=== PATIENT | male | born 1935 | race Caucasian/White ===

== ENCOUNTER 2020-02-12 14:37 | Emergency (ER) | payer OTHER, SELFPAY ==
[2020-02-12 14:42] VITALS: BP 135/95; PULSE 72; RESP 18; TEMP 36.8; O2SAT 94
--- NOTE | 2020-02-12 15:00 | DI.RAD_ITS ---
EXAM: XR FINGER RT INDEX CLINICAL HISTORY: Possible splinter FB,distal phalanx, near nail bed. TECHNIQUE: 2D digital imaging was performed. COMPARISON: No exams were available for comparison FINDINGS: BONES: No acute fracture is present. No bony destructive lesion is seen. JOINTS: No dislocation present. SOFT TISSUE: There is soft tissue swelling particularly near the nailbed. No radiopaque foreign body or abnormal gas collection is seen. There are [id number] degenerative changes at the interpha langeal joints. IMPRESSION: No evidence of acute fracture, or radiopaque foreign body. DATA REPOSITORY: RADIATION DOSE DELIVERED:
--- NOTE | 2020-02-12 15:30 | ED.GENADUL_ITS ---
Discharge Plan Disposition Patient Disposition: HOME Condition: Stable Discharge Details Chief Complaint: RashLesion Clinical Impression: Paronychia Primary Care Provider: Mer Rico ED Provider: Tay Eastman Home Meds and New Rx's Prescriptions: New cephalexin [Keflex] 500 mg capsule 500 mg PO QID 10 Days Qty: 40 RF: 0 Continued fluoxetine [Prozac] 40 MG capsule 40 mg PO DAILY RF: 0 gabapentin 600 MG tablet 600 mg PO HS RF: 0 amlodipine 5 MG tablet 5 mg PO DAILY RF: 0 losartan 25 MG tablet 25 mg PO DAILY RF: 0 metronidazole 500 MG tablet 500 mg PO TID Qty: 20 RF: 0 levofloxacin 750 MG tablet 750 mg PO DAILY Qty: 6 RF: 0 Discharge Instructions Instructions: Paronychia (ED) Additional Instructions: Keflex as directed. No obvious foreign body seen on x-ray or my physical examination. Change antibiotic dressing daily. Elevate, warm compresses every 2 hours for 20 minutes. Please watch for new or worsening symptoms and return to the ER for any concerns. I would like you to reach out to your primary care provider tomorrow for reevaluation in the next 3 to 5 days. [id number] medication such as Tylenol as directed for discomfort. Discharge Data Discharge Date/Time-TO BE ENTERED AT DEPARTURE: 02/12/20 16:02 Medical Decision Making 85-year-old gentleman presents with right index finger discomfort over the past 24-48 hours, questions if potentially there is a splinter. He appears well, nontoxic. Neuro, vascular, tendon intact. Examination is most consistent with paronychia, no obvious foreign body. Tetanus is up-to-date. Will obtain x-ray to help evaluate for foreign body, we discussed the chance of retained foreign body even with x-ray. Will perform digital block and drained paronychia X-ray read by me and later confirmed to virtual radiology as negative. Discussed x-ray with patient. Paronychia drained without complication. Antibiotic ointment applied. Will place on Keflex. Patient has additional questions or concerns and is comfortable discharge. HPI General Mode of arrival: ambulatory . Date/Time Provider Initiated Documentation: 02/12/20 15:02 . Limitations to Documentation: no limitations . Information obtained by: patient . HPI Narrative: This is a 85-year-old gentleman who is right-hand dominant, history of hypertension, presenting for an infected right index finger. He reports a couple days ago he was working with wood, did not notice any injury. Subsequently the area has been warm, red, painful. He thought possibly there could be a splinter retained in his finger however again he did not feel a splinter when he was working with a wood. He denies fever, numbness, tingling, weakness. Pain is mild to moderate. He reports that his tetanus is up-to-date Related Data Home Medications Medication Instructions Recorded Confirmed amlodipine 5 mg PO DAILY 02/25/18 02/12/20 fluoxetine [Prozac] 40 mg PO DAILY 02/25/18 02/12/20 gabapentin 600 mg PO HS 02/25/18 02/12/20 levofloxacin 750 mg PO DAILY #6 tablet 02/25/18 02/12/20 losartan 25 mg PO DAILY 02/25/18 02/12/20 metronidazole 500 mg PO TID #20 tab 02/25/18 02/12/20 cephalexin [Keflex] 500 mg PO QID 10 Days #40 cap 02/12/20 Previous Rx's Medication Instructions Recorded levofloxacin 750 mg PO DAILY #6 tablet 02/25/18 metronidazole 500 mg PO TID #20 tab 02/25/18 cephalexin [Keflex] 500 mg PO QID 10 Days #40 cap 02/12/20 Allergies Allergy/AdvReac Type Severity Reaction Status Date / Time hydromorphone [From Dilaudid] AdvReac Severe Psychosis Unverified 02/12/20 14:46 meperidine [From Demerol] AdvReac Severe Psychosis Unverified 02/12/20 14:46 General Stated Complaint: RashLesion DOMINIQUE: 4 Review of Systems Constitutional Constitutional: Denies fever(s) and Denies weakness Musculoskeletal Musculoskeletal: Denies arthralgias, Denies numbness and Denies tingling Integumentary/Breasts Skin/Breast: Denies rash Neurologic Neurologic: Denies numbness, Denies tingling and Denies weakness COUNT INCLUDES THE [facility] Social History Do you feel safe at home: Yes Do you feel safe in your relationship?: Yes Exam Const General: cooperative, healthy appearing, comfortable and no acute distress Orientation: alert and awake [facility] Head: normal to inspection, normocephalic and atraumatic Mouth: moist mucous membranes Eyes Conjunctivae: conjunctivae normal Neck Neck: normal visual inspection, trachea midline and supple Resp Effort & Inspection: normal respiratory effort and able to speak in complete sentences Cardio Rate: regular rate Rhythm: regular rhythm Skin General skin exam: no rashes or lesions noted Neuro General: patient alert, patient awake, moves all extremities and no focal motor deficits Sensory Exam: no sensory deficits noted Extrem Right upper extremity: hand Hand/finger images: 1. Erythema, warmth, swelling, tenderness. Mild fluctuance. No obvious foreign body or puncture wound. Examination consistent with paronychia Psych Appearance: grossly normal Mental Status: mental status grossly normal Course Vital Signs Vital signs: Vital Signs Temperature 36.8 C 02/12/20 14:42 Pulse 72 02/12/20 14:42 Respiratory Rate 18 02/12/20 14:42 Blood Pressure 135/95 H 02/12/20 14:42 Pulse Oximetry 94 L 02/12/20 14:42 Temperature 36.8 C 02/12/20 14:42 Temperature Source Temporal Artery Scan 02/12/20 14:42 Pulse 72 02/12/20 14:42 Respiratory Rate 18 02/12/20 14:42 Respiratory Effort Non-Labored 02/12/20 14:48 Blood Pressure 135/95 H 02/12/20 14:42 Blood Pressure Position Sitting 02/12/20 14:42 Pulse Oximetry 94 L 02/12/20 14:42 Pain Level 3 02/12/20 14:42 Procedures Abscess I/D Site: Hand Side (if applicable): Right (Index finger) Local Anesthetic: Lidocaine 1% and Bupivicaine 0.5% Amount of anesthesia used (mL): 5 Technique: Incised with #11 Blade Amount of fluid expressed (mL): 2 Irrigation: Yes Packing used?: None Complications: Other (None)
[2020-02-12 15:55] VITALS: BP 132/77; PULSE 57; RESP 18; O2SAT 96
== END 2020-02-12 16:02 | disposition home or self-care (01) ==
PROVIDERS: Emergency Provider Physician Assistant; PCP Nurse Practitioner
DX: L03.011 Cellulitis of right finger (principal); I10 Essential (primary) hypertension
CPT/HCPCS: 10060; 99283; 73140; 99282

== ENCOUNTER 2022-06-06 15:36 | Emergency (ER) | payer OTHER, SELFPAY ==
[2022-06-06 15:45] VITALS: BP 143/66; PULSE 55; RESP 18; TEMP 36.6; O2SAT 98
--- NOTE | 2022-06-06 16:18 | NUR.NOTE ---
Nohemy requesting surgical consult for abd hernia DIOR, ER visit 06/06/22, [facility]
--- NOTE | 2022-06-06 16:20 | ED.GENADUL_ITS ---
Discharge Plan Disposition Patient Disposition: HOME Condition: Stable Discharge Details Clinical Impression: Hernia, abdominal Primary Care Provider: Gay Vanegas ED Provider: Tay Eastman Home Meds and New Rx's Prescriptions: Continued metoprolol tartrate 25 mg tablet 25 mg PO DAILY ropinirole 0.25 mg tablet 0.25 mg PO TID multivitamin Tablet 1 tab PO DAILY isosorbide dinitrate 30 mg tablet 30 mg PO BID Rx Instructions: allow nitrate-free interval of 12-14 hrs per 24-hr period calcium carbonate [Calcium 600] 600 mg calcium (1,500 mg) tablet 600 mg PO BID cetirizine 10 mg tablet 10 mg PO DAILY PRN aspirin 81 mg tablet,delayed release (DR/EC) 81 mg PO DAILY fluoxetine [Prozac] 40 MG capsule 40 mg PO DAILY amlodipine 5 MG tablet 5 mg PO DAILY losartan 25 MG tablet 25 mg PO DAILY Discharge Instructions Instructions: Ventral Hernia (ED) Additional Instructions: The examination is consistent with a hernia. Currently it is soft, nontender, and easily reduced. As we discussed this is not surgical emergent at the moment but if it becomes painful, you start to have nausea, vomiting, the inability to reduce the hernia, then I need you to return immediately to the ER. Otherwise I have placed you on the surgical list, Dr. Hair. If you do not hear from his office on Wednesday I would like you to personally reach out to discuss your hernia and need for elective surgery. I do understand that you are returning to [place] on July 05 and are open to the idea of having her surgery here before you leave. Referrals: Dylan Hair MD [ [facility]YS[facility]] - Medical Decision Making This is an 87-year-old male past medical history of bowel resection x2, right inguinal hernia repair, presenting for a painless hernia that he noticed about 1 week ago. I am unable to appreciate a hernia with the patient lying supine but when he stands I am able to appreciate a nontender easily reducible hernia along the inferior right aspect of his vertical abdominal scar. At this time I do not believe that laboratory values or imaging is necessary. We discussed signs and symptoms of an incarcerated or strangulated hernia and the importance of returning immediately. Otherwise I will place him on the surgical list to help expedite outpatient care. They will discuss the realistic timeframe for potential surgery and whether he would like to have this done prior to going to [place] for the rest of the year, July 05. Standard discharge and return precautions were provided. Patient understands, is agreeable to this plan, and has no additional questions or concerns upon discharge. This documentation was generated using [employer] system, please disregard any oddities of phrase or misspellings. Medical Records Medical records reviewed: Yes I reviewed the patient's medical records. HPI General Mode of arrival: ambulatory . Date/Time Provider Initiated Documentation: 06/06/22 15:53 . Limitations to Documentation: no limitations . Information obtained by: patient and family . HPI Narrative: This is an 87-year-old gentleman with a past medical history of hypertension, inguinal hernia repair, partial bowel resection x2, most recently in October 2021 in [place], now presenting with a painless hernia associated with his most recent surgical incision. Patient reports he noticed it approximately 1 week ago. It is painless and if he lays flat it resolves completely. He denies recent illness, trauma, fever, chest pain, shortness of breath, nausea, vomiting, abdominal pain, back pain, dysuria, hematuria, diarrhea or constipation. Patient is scheduled to go back to [place] for the winter on July 05 and unsure if he should follow-up with surgery here or there. Related Data Home Medications Medication Instructions Recorded Confirmed amlodipine 5 mg tablet 5 mg PO DAILY 02/25/18 06/16/21 fluoxetine 40 mg capsule (Prozac) 40 mg PO DAILY 02/25/18 06/16/21 losartan 25 mg tablet 25 mg PO DAILY 02/25/18 06/16/21 aspirin 81 mg tablet,delayed 81 mg PO DAILY 06/16/21 06/16/21 release calcium carbonate 600 mg calcium 600 mg PO BID 06/16/21 06/16/21 (1,500 mg) tablet (Calcium) cetirizine 10 mg tablet 10 mg PO DAILY PRN 06/16/21 06/16/21 isosorbide dinitrate 30 mg tablet 30 mg PO BID 06/16/21 06/16/21 metoprolol tartrate 25 mg tablet 25 mg PO DAILY 06/16/21 06/16/21 multivitamin 1 tab PO DAILY 06/16/21 06/16/21 ropinirole 0.25 mg tablet 0.25 mg PO TID 06/16/21 06/16/21 Allergies Allergy/AdvReac Type Severity Reaction Status Date / Time hydromorphone [From Dilaudid] AdvReac Severe Psychosis Unverified 06/06/22 15:49 meperidine [From Demerol] AdvReac Severe Psychosis Unverified 06/06/22 15:49 General Stated Complaint: Abd Prob DOMINIQUE: 4 Review of Systems Constitutional Constitutional: Denies fever(s) Cardiovascular Cardiovascular: Denies chest pain and Denies dyspnea Respiratory Respiratory: Denies dyspnea Gastrointestinal Gastrointestinal: Denies abdominal pain, Denies melena, Denies hematochezia, Denies constipation, Denies diarrhea, Denies loose stools, Denies nausea and Denies vomiting Genitourinary Genitourinary: Denies dysuria Musculoskeletal Musculoskeletal: Denies back pain Integumentary/Breasts Skin/Breast: Denies rash Hematologic/Lymphatic Hematologic/Lymphatic: Denies easy bleeding and Denies easy bruising PFSH All Active Problems (Updated 06/06/22 @ 16:28 by KELLY Haynes) Hernia, abdominal (Acute) Sensorineural hearing loss (Acute) Central perforation of tympanic membrane, right ear (Acute) Foreign body in left ear, initial encounter (Acute) Spinal stenosis (Acute) Depression (Chronic) Hypertension (Chronic) Surgical History H/O abdominal surgery History of amputation of finger of left hand History of ear surgery Right myringoplasty, failed History of prostatectomy History of tonsillectomy and adenoidectomy Family History Mother Breast cancer Sister Colon cancer Social History Smoking/Tobacco Use Status: Former Tobacco Use Smoking risk assessment performed?: Yes Alcohol Intake: current Alcohol Intake frequency: 0-2 drinks per day Household members: spouse Number of Children: 1 Pets and animals: Yes Pets and animals: dog(s) Do you feel safe at home: Yes Do you feel safe in your relationship?: Yes Exam Const General: cooperative, healthy appearing, comfortable and no acute distress Orientation: alert and awake HENMT Head: normal to inspection, normocephalic and atraumatic Face and sinus: normal facial exam Mouth: moist mucous membranes Eyes Conjunctivae: conjunctivae normal Neck Neck: normal visual inspection, full ROM, trachea midline and supple Resp Effort & Inspection: normal respiratory effort and able to speak in complete sentences Auscultation: clear to auscultation bilaterally Cardio Rate: regular rate Rhythm: regular rhythm GI Inspection: obesity and scar Palpation: soft, not firm, no guarding, no pulsatile masses and nontender Auscultation: normal bowel sounds Other: While the patient is lying supine his evaluation is unremarkable, no tenderness or obvious hernia present. When I have the patient's stand and then able to appreciate a soft, nontender, easily reduced hernia to the inferior right aspect of his vertical surgical incision. No evidence of incarceration or strangulation. Skin General skin exam: no rashes or lesions noted Neuro General: patient alert, patient awake, moves all extremities and no focal motor deficits Sensory Exam: no sensory deficits noted Psych Appearance: grossly normal Mental Status: mental status grossly normal Course Vital Signs Vital signs: Vital Signs Temperature 36.6 C 06/06/22 15:45 Pulse 55 L 06/06/22 15:45 Respiratory Rate 18 06/06/22 15:45 Blood Pressure 143/66 H 06/06/22 15:45 Pulse Oximetry 98 06/06/22 15:45 Temperature 36.6 C 06/06/22 15:45 Temperature Source Temporal Artery Scan 06/06/22 15:45 Pulse 55 L 06/06/22 15:45 Respiratory Rate 18 06/06/22 15:45 Blood Pressure 143/66 H 06/06/22 15:45 Blood Pressure Position Sitting 06/06/22 15:45 Pulse Oximetry 98 06/06/22 15:45 Oxygen Delivery Method Room Air 06/06/22 15:45 Oxygen Flow Rate 0 06/06/22 15:45 Pain Level 0 06/06/22 15:45
== END 2022-06-06 16:39 | disposition home or self-care (01) ==
PROVIDERS: Emergency Provider Physician Assistant; PCP Anesthesiology
DX: K46.9 Unspecified abdominal hernia without obstruction or gangrene (principal); I10 Essential (primary) hypertension; Z90.49 Acquired absence of other specified parts of digestive tract; Z79.82 Long term (current) use of aspirin; Z87.891 Personal history of nicotine dependence
CPT/HCPCS: 99281; 99282

== ENCOUNTER → 2022-06-08 11:00 | Outpatient (BNVA) | payer OTHER, SELFPAY | PROVIDERS: PCP Anesthesiology; Referring Provider Anesthesiology; Visit Provider Surgery | DX: K46.9 Unspecified abdominal hernia without obstruction or gangrene (principal); I10 Essential (primary) hypertension; C61 Malignant neoplasm of prostate; Z98.890 Other specified postprocedural states; Z86.19 Personal history of other infectious and parasitic diseases; Z86.79 Personal history of other diseases of the circulatory system; Z87.19 Personal history of other diseases of the digestive system | CPT/HCPCS: 99215; 99243 ==

== ENCOUNTER 2023-04-11 07:38 | Emergency (ER) | payer MEDICARE, SELFPAY ==
[2023-04-11] VITALS (33 sets, daily range): BP systolic 107–153; BP diastolic 49–76; PULSE 48–60; RESP 10–25; TEMP 36.5; O2SAT 97–98
--- NOTE | 2023-04-11 07:30 | RT.EKG_ITS ---
APPROVED REPORT Exam: Resting ECG Reason for Exam: A-Fib symptoms Patient Location: E HR:54 bpm ECG Measurements Heart Rate 54 AXIS VT 257 P 1 QRSd 105 QRS -29 QT 456 T 9 QTc 427 Conclusion Sinus bradycardia...rate< 60 Atrial premature complex...SV complex w/ short R-R interval Prolonged VT interval...VT >220, V-rate 50- 90 Inferior infarct, old...Q >35mS, II III aVF Agree, LD , PAC no STEMI
--- NOTE | 2023-04-11 08:15 | DI.RAD_ITS ---
Exam(s) XR CHEST 2V PA LATERAL EXAM: XR CHEST 2V PA LATERAL CLINICAL HISTORY: sob TECHNIQUE: 2D digital imaging was performed. COMPARISON: None FINDINGS: Exam is limited by suboptimal pulmonary inflation and leads overlying the chest. HEART: Mildly enlarged. Aorta: Not dilated. Calcification at arch. PULMONARY VASCULATURE: Normal. LUNGS: Fibrotic changes. Mild CHF cannot be excluded. No focal area consolidation. PLEURAL SPACE: No pleural effusion or pneumothorax. BONE severe degenerative changes of the left shoulder. IMPRESSION: Suboptimal pulmonary inflation. Question of mild CHF. Underlying fibrotic changes. DATA REPOSITORY: RADIATION DOSE DELIVERED:
--- NOTE | 2023-04-11 08:25 | ED.GENADUL_ITS ---
Discharge Plan Discharge Details Chief Complaint: Arrhythmia Primary Care Provider: Gay Vanegas ED Provider: Gino Jamison Home Meds and New Rx's Prescriptions: No Action metoprolol tartrate 25 mg tablet 25 mg PO DAILY ropinirole 0.25 mg tablet 0.25 mg PO TID multivitamin Tablet 1 tab PO DAILY isosorbide dinitrate 30 mg tablet 30 mg PO BID Rx Instructions: allow nitrate-free interval of 12-14 hrs per 24-hr period calcium carbonate [Calcium 600] 600 mg calcium (1,500 mg) tablet 600 mg PO BID cetirizine 10 mg tablet 10 mg PO DAILY PRN aspirin 81 mg tablet,delayed release (DR/EC) 81 mg PO DAILY tamsulosin 0.4 mg capsule 0.4 mg PO QHS losartan 25 mg tablet 12.5 mg PO DAILY fluoxetine [Prozac] 40 MG capsule 40 mg PO DAILY Medical Decision Making 88-year-old gentleman presents to the emergency department for evaluation of some shortness of breath this morning when he woke up without his CPAP. EKG showed sinus bradycardia without any ST segment changes normal teas. No signs of ischemia. Normal intervals. Serial troponins were negative. Chest x- ray did not reveal any abnormalities. Rest of labs within normal limits. Patient with ruled out from an ACS perspective. He remained asymptomatic in the emergency department. After reviewing the labs and the results of his EKG and chest x-ray with him the gentleman did confide to me that he is well aware that he needs to lose several pounds. They have just moved to the area transition from [place] to [place]. He has requested to be set up with a primary care doctor if possible the dental clinic. He will be instructed to continue taking all his regular medications and to use his CPAP. HPI General Date/Time Provider Initiated Documentation: 04/11/23 08:20 . HPI Narrative: 88-year-old gentleman comes to the emergency department for evaluation secondary to feeling lightheaded and dizzy at 5 AM when he woke up. He usually uses his CPAP for some reason he did not use it last night. This was also associated with some mild shortness of breath that has resolved on its own. He is extremely concerned about having atrial fibrillation and he wanted to make sure that the dizziness was not caused by A-fib. He did not have any fevers nor cough. Currently in the emergency department he is not short of breath. No palpitat ions no chest pain no nausea no vomiting resolved dizziness. He has been compliant with all his medications. His is concerned because the only blood thinner he is on his aspirin and he bruises easily. Last time he was seen by cardiology was in the spring before he had a hernia repair and required medical clearance for surgery. Related Data Home Medications Medication Instructions Recorded Confirmed fluoxetine 40 mg capsule (Prozac) 40 mg PO DAILY 02/25/18 04/11/23 aspirin 81 mg tablet,delayed 81 mg PO DAILY 06/16/21 04/11/23 release calcium carbonate 600 mg calcium 600 mg PO BID 06/16/21 04/11/23 (1,500 mg) tablet (Calcium) cetirizine 10 mg tablet 10 mg PO DAILY PRN 06/16/21 04/11/23 isosorbide dinitrate 30 mg tablet 30 mg PO BID 06/16/21 04/11/23 metoprolol tartrate 25 mg tablet 25 mg PO DAILY 06/16/21 04/11/23 multivitamin 1 tab PO DAILY 06/16/21 04/11/23 ropinirole 0.25 mg tablet 0.25 mg PO TID 06/16/21 04/11/23 tamsulosin 0.4 mg capsule 0.4 mg PO QHS 06/08/22 04/11/23 losartan 25 mg tablet 12.5 mg PO DAILY 06/10/22 04/11/23 Allergies Allergy/AdvReac Type Severity Reaction Status Date / Time hydromorphone [From Dilaudid] AdvReac Severe Psychosis Unverified 04/11/23 08:43 meperidine [From Demerol] AdvReac Severe Psychosis Unverified 04/11/23 08:43 General Stated Complaint: Arrhythmia DOMINIQUE: 3 Review of Systems Narrative: 10 point review of system is negative unless otherwise specified in the HPI PFSH All Active Problems (Updated 07/07/22 @ 00:09 by SHIVANI BHAGAT) History of cardiac dysrhythmia (Acute) Probably secondary to sepsis Hx of sepsis (Acute) History of exploratory laparotomy (Acute) x2 diverticulitis and sepsis Prostate cancer (Chronic) Sensorineural hearing loss (Acute) Central perforation of tympanic membrane, right ear (Acute) Foreign body in left ear, initial encounter (Acute) Spinal stenosis (Acute) Depression (Chronic) Hypertension (Chronic) Medical History (Updated 07/07/22 @ 00:09 by SHIVANI BHAGAT) History of diverticulitis Surgical History (Updated 06/18/22 @ 18:49 by Liz Cortez DO) H/O abdominal surgery History of amputation of finger of left hand History of ear surgery Right myringoplasty, failed History of hernia repair (~2005) Per pt double hernia repair. History of prostatectomy ?2005 History of tonsillectomy and adenoidectomy Family History Mother Breast cancer Sister Colon cancer Social History Smoking/Tobacco Use Status: Former Tobacco Use Smoking risk assessment performed?: Yes Alcohol Intake: current Alcohol Intake frequency: 0-2 drinks per day Drug use: Never Substance use type: does not use Household members: spouse Housing: house Number of Children: 1 Pets and animals: Yes Pets and animals: dog(s) Do you feel safe at home: Yes Do you feel safe in your relationship?: Yes Exam Narrative Exam Narrative: General: A,A Ox3, Calm, no apparent distress, well developed, pleasant and cooperative Head Size/Shape: normocephalic, atraumatic Eyes Pupils: PERRLA Extraocular Mobility: intact and symmetrical Conjunctiva: non-injected, anicteric, no discharge Ears, Nose, Throat Nares: patent bilaterally Oral Cavity: moist Neck: no masses, no crepitus Lymph Nodes: no cervical lymphadenopathy Respiratory Respiratory Effort: no dyspnea Auscultation: clear to auscultation bilaterally, normal breath sounds, no wheezing, no rales/crackles Cardiovascular Heart Auscultation: regular rate and rhythm, normal S1, normal S2, no murmurs, no rubs, no gallops, Pulse Quality: +2 equal bilaterally, location(s) radial Abdomen Inspection and Palpation: soft, non-tender, non-distended, no hepatosplenomegaly Musculoskeletal System Joints, Bones, and Muscles: no deformities Extremities: warm and well-perfused, no cyanosis, capillary refill <2 seconds Skin Skin Inspection: no rash, no lesions, no bruising Neurological Motor: normal tone, normal strength, moving all extremities equally Psychiatric: good insight, good judgement, normal mood and affect Course Vital Signs Vital signs: Vital Signs Pulse 52 L 04/11/23 07:41 Respiratory Rate 18 04/11/23 07:41 Blood Pressure 151/66 H 04/11/23 07:41 Pulse Oximetry 97 04/11/23 07:41 Pulse 49 L 04/11/23 08:01 Pulse 50 L 04/11/23 08:01 Respiratory Rate 20 04/11/23 08:01 Respiratory Effort Normal, Non-Labored 04/11/23 07:46 Blood Pressure 131/63 04/11/23 08:01 Blood Pressure Mean 79 04/11/23 08:01 Pulse Oximetry 97 04/11/23 07:41 Oxygen Delivery Method Room Air 04/11/23 07:41 Oxygen Flow Rate 0 04/11/23 07:41 PAWSS Have you Been Recently Intoxicated or Drunk Within the Last 30 days?: No Have you Ever Experienced Previous Episodes of Alcohol Withdrawal?: No Have you ever Experienced Withdrawal Seizures?: No Have you ever Experienced Delirium Tremens(DT)s?: No Have you ever undergone Alcohol Rehabilitation Treatment (i.e, inpt ot outpatient treatment programs)?: No Have you ever Experienced Blackouts?: No Have you ever Combined Alcohol with other Downers within the last 90 days?: No Have you ever Combined Alcohol with any other Substance of Abuse during the last 90 days?: No Result: 0
[2023-04-11 08:47] LABS: Abs Immature Grans 0.04 10^3/uL (0.0-0.06); Absolute Basophil Count 0.03 10^3/uL (0.0-0.2); Absolute Eosinophil Count 0.27 10^3/uL (0.0-0.7); Absolute Monocyte Count 0.62 10^3/uL (0.1-0.8); Absolute Neutrophil Count 4.44 10^3/uL (1.2-6.7); Basophils % 0.4; Eosinophils % 3.9; HCT 40.7 % (40.0-50.0); HGB 13.5 g/dL (13.5-17.5); Immature Grans % 0.6; Lymphocytes % 22.9; MCH 28.3 pg (27.0-33.0); MCHC 33.2 % (32.0-36.0); MCV 85 fL (80-95); MPV 9.9 fL (8.0-11.0); Monocytes % 8.9; Neutrophils % 63.3; Platelet Count 180 10^3/uL (130-400); RBC 4.77 10^6/uL (4.36-5.78); RDW 13.3 % (11.8-14.1); RDW-SD 42.2 fL
[2023-04-11 09:04] LABS: ALT 22 U/L (16-63); AST 22 U/L (15-37); Albumin 3.2 g/dL (3.4-5.0); Alkaline Phosphatase 63 U/L (46-116); Anion Gap 8.3 mmol/L (3-11); BUN 20 mg/dL (7-18); Bilirubin, Total 0.6 mg/dL (0.2-1.0); CO2 27.7 mmol/L (21.0-32.0); Calcium 8.7 mg/dL (8.5-10.1); Chloride 102 mmol/L (98-107); Glucose 98 mg/dL (74-106); Potassium 3.8 mmol/L (3.5-5.1); Sodium 138 mmol/L (136-145); Total Protein 6.3 g/dL (6.4-8.2); Troponin I < 50 ng/L (<or=60)
--- NOTE | 2023-04-11 09:07 | DI.VRAD_ITS ---
PROCEDURE INFORMATION: Exam: XR Chest Exam date and time: 04/11/2023 9:00 AM Age: 88 years old Clinical indication: Shortness of breath; Patient HX: SOB TECHNIQUE: Imaging protocol: Radiologic exam of the chest. Views: 2 views. COMPARISON: CT ABD PELVIS WITH CONTRAST 02/25/2018 11:35 AM FINDINGS: Lungs: Shallow inspiratory effort with diffuse interstitial prominence but no dense consolidation. Pleural spaces: Minimal apical pleural thickening without pneumothorax or large effusion. Heart/Mediastinum: Tiny hiatal hernia. Nonenlarged cardiomediastinal silhouette. Vasculature: Sclerotic aortic arch. Bones/joints: Degenerative changes without acute fracture. IMPRESSION: Shallow inspiratory effort with potential pulmonary venous congestive change. No dense consolidation. Continued follow-up recommended. Dictated and Authenticated by: Stan Singh MD. Ordering:ИВАН Christian MD
[2023-04-11 12:03] LABS: Troponin I < 50 ng/L (<or=60)
--- NOTE | 2023-04-11 12:21 | NUR.NOTE ---
Referral to Care Mgmt to assist with establishing primary care with [facility] and f/u appt in a few days. [place]. Put the referral in the care manger's box for follow up assistance.Nursing Note:
== END 2023-04-11 12:55 | disposition home or self-care (01) ==
PROVIDERS: Emergency Provider Emergency Medicine; PCP Anesthesiology
DX: R06.02 Shortness of breath (principal); R51.9 Headache, unspecified; I48.0 Paroxysmal atrial fibrillation; R00.1 Bradycardia, unspecified; Z87.891 Personal history of nicotine dependence; Z79.899 Other long term (current) drug therapy
CPT/HCPCS: 36415; 80053; 93005; 99284; 71046; 84484; 85025; 93010; 99283